=== PATIENT | female | born 1955 | race Caucasian/White ===

== ENCOUNTER → 2020-09-08 10:33 | Outpatient (BNVA) | payer MEDICAID, SELFPAY | PROVIDERS: Family Provider Nurse Practitioner Family; PCP Family Medicine; Visit Provider Family Medicine | DX: E03.9 Hypothyroidism, unspecified (principal); E11.9 Type 2 diabetes mellitus without complications; J44.9 Chronic obstructive pulmonary disease, unspecified; I10 Essential (primary) hypertension; K29.70 Gastritis, unspecified, without bleeding; L65.9 Nonscarring hair loss, unspecified; R53.83 Other fatigue; K29.00 Acute gastritis without bleeding; I50.9 Heart failure, unspecified; E11.69 Type 2 diabetes mellitus with other specified complication | CPT/HCPCS: 80053; 80061; 82607; 82652; 83036; 84443; 85025 ==

== ENCOUNTER → 2021-01-20 10:38 | Outpatient (BNVA) | payer MEDICAID, SELFPAY | PROVIDERS: Family Provider Nurse Practitioner Family; PCP Family Medicine; Visit Provider Family Medicine | DX: E11.69 Type 2 diabetes mellitus with other specified complication (principal); E03.9 Hypothyroidism, unspecified; F41.1 Generalized anxiety disorder; I10 Essential (primary) hypertension; K29.70 Gastritis, unspecified, without bleeding; K31.84 Gastroparesis; J30.9 Allergic rhinitis, unspecified; G25.81 Restless legs syndrome; E11.9 Type 2 diabetes mellitus without complications; J44.9 Chronic obstructive pulmonary disease, unspecified; D58.2 Other hemoglobinopathies | CPT/HCPCS: 80053; 83036; 83540; 84439; 84443; 84481; 85025 ==